=== PATIENT | female | born 1980 | race Two or more races ===

== ENCOUNTER 2021-08-17 10:28 | Emergency (ER) | payer SELFPAY ==
[~2021-08-17] VITALS: Ht 162.6 cm; Wt 67.7 kg
--- NOTE | 2021-08-17 11:30 | PHYS DOC ---
Past Medical History Past Medical History: No Pertinent History Past Surgical History: No Surgical History Smoking Status: Never Smoker Alcohol Use: None General Adult EDM: Chief Complaint: VAGINAL BLEEDING HPI: HPI: Is a 41-year-old female that presents today with vaginal bleeding. Patient states her last normal menstrual period was July 042021, she said that over the last 2 days that she has had some bleeding when she wipes after urina tion. She also Review of Systems: Review of Systems: Constitutional: Denies fever or chills. [] Eyes: Denies change in visual acuity. [] HENT: Denies nasal congestion or sore throat. [] Respiratory: Denies cough or shortness of breath. [] Cardiovascular: Denies chest pain or edema. [] GI: Denies abdominal pain, nausea, vomiting, bloody stools or diarrhea. [] : Denies dysuria. [] Musculoskeletal: Denies back pain or joint pain. [] Integument: Denies rash. [] Neurologic: Denies headache, focal weakness or sensory changes. [] Endocrine: Denies polyuria or polydipsia. [] Lymphatic: Denies swollen glands. [] Psychiatric: Denies depression or anxiety. [] Heart Score: C/O Chest Pain: No Risk Factors: Risk Factors: DM, Current or recent (<one month) smoker, HTN, HLP, family history of CAD, obesity. Risk Scores: Score 0 - 3: 2.5% MACE over next 6 weeks - Discharge Home Score 4 - 6: 20.3% MACE over next 6 weeks - Admit for Clinical Observation Score 7 - 10: 72.7% MACE over next 6 weeks - Early Invasive Strategies Allergies: Allergies: Allergies Coded Allergies Type Severity Reaction Last Updated Verified No Known Drug Allergies 08/17/21 No Physical Exam: PE: Constitutional: Well developed, well nourished, no acute distress, non-toxic appearance. [] HENT: Normocephalic, atraumatic, bilateral external ears normal, oropharynx moist, no oral exudates, nose normal. [] Eyes: PERRLA, EOMI, conjunctiva normal, no discharge. [] Neck: Normal range of motion, no tenderness, supple, no stridor. [] Cardiovascular:Heart rate regular rhythm, no murmur [] Lungs & Thorax: Bilateral breath sounds clear to auscultation [] Abdomen: Bowel sounds normal, soft, no tenderness, no masses, no pulsatile masses. [] Skin: Warm, dry, no erythema, no rash. [] Back: No tenderness, no CVA tenderness. [] Extremities: No tenderness, no cyanosis, no clubbing, ROM intact, no edema. [] Neurologic: Alert and oriented X 3, normal motor function, normal sensory function, no focal deficits noted. [] Psychologic: Affect normal, judgement normal, mood normal. [] Current Patient Data: Labs: Laboratory Tests Test 08/17/21 10:49 08/17/21 10:52 08/17/21 11:40 Urine Collection Type Unknown Urine Color (Auto) Colorless Urine Turbidity Clear Urine pH (Auto) 7.0 Urine Specific [place] 1.002 Urine Protein (Auto) Negative mg/dL Urine Glucose (Auto)(UA) Negative mg/dL Urine Ketones (Auto) Negative mg/dL Urine Blood (Auto) Moderate Urine Nitrite Negative Urine Bilirubin (Auto) Negative Urine Urobilinogen (Auto) Normal mg/dL Urine Leukocyte Esterase (Auto) Negative Urine RBC 0 /HPF Urine WBC 0 /HPF Urine Squamous Epithelial Cells Mod /LPF Urine Bacteria 0 /HPF Bedside Urine HCG, Qualitative Hcg positive White Blood Count 5.2 x10^3/uL Red Blood Count 4.03 x10^6/uL Hemoglobin 11.9 g/dL Hematocrit 36.8 % Mean Corpuscular Volume 91 fL Mean Corpuscular Hemoglobin 30 pg Mean Corpuscular Hemoglobin Concent 32 g/dL Red Cell Distribution Width 13.6 % Platelet Count 380 x10^3/uL Neutrophils (%) (Auto) 71 % Lymphocytes (%) (Auto) 21 % Monocytes (%) (Auto) 8 % Eosinophils (%) (Auto) 1 % Basophils (%) (Auto) 0 % Neutrophils # (Auto) 3.7 x10^3/uL Lymphocytes # (Auto) 1.1 x10^3/uL Monocytes # (Auto) 0.4 x10^3/uL Eosinophils # (Auto) 0.0 x10^3/uL Basophils # (Auto) 0.0 x10^3/uL Maternal Serum HCG Beta Subunit 1495 mIU/mL Laboratory Tests Test 08/17/21 10:52 POC Urine HCG, Qualitative Hcg positive (Negative) Vital Signs: Vital Signs Date Time Temp Pulse Resp B/P (MAP) Pulse Ox O2 Delivery O2 Flow Rate FiO2 08/17/21 12:58 68 14 103/63 (76) 98 Room Air 08/17/21 12:28 64 16 98/58 (71) 98 Room Air 08/17/21 11:28 69 16 103/57 (72) 99 Room Air 08/17/21 10:50 86 16 118/63 (81) 100 Room Air Vital Signs Date Time Temp Pulse Resp B/P (MAP) Pulse Ox O2 Delivery O2 Flow Rate FiO2 08/17/21 10:50 86 16 118/63 (81) 100 Room Air EKG: EKG: [] Radiology/Procedures: Radiology/Procedures: [REASON: vaginal bleeding PROCEDURE: OB TRANSVAG EXAMINATION: US OB TRANSVAGINAL (FIRST TRIMESTER PELVIC ULTRASOUND) CLINICAL HISTORY: Vaginal bleeding, LMP 07/02/2021. TECHNIQUE: Sonography of the pelvis was performed by transvaginal techniques. COMPARISON: None. FINDINGS: Uterus: - Size: 8.6 x 5.5 x 4.5 cm - Myometrium: Homogeneous echotexture - Cervix: Unremarkable Gestation: - Intrauterine Gestational Sac: Single present with normal morphology - Mean Sac Diameter: 4.6 mm, corresponding gestational age 5 weeks 2 days - Yolk Sac: Not visualized - Embryo: Not visualized - Perigestational Hemorrhage: Absent Right Ovary: - Size: 3.3 x 1.8 x 1.9 cm - 1.2 cm hypoechoic lesion which appears to have thickened ill-defined philippe, possibly a corpus luteum. Normal ovarian blood flow. Left Ovary: - Size: 2.7 x 2.0 x 2.0 cm - Normal sonographic appearance and blood flow. Pelvic Free Fluid: Mild anechoic free fluid. IMPRESSION: Intrauterine saclike structure without visualized pole or yolk sac, possibly too early in to be detected. Recommend follow-up ultrasound in 10-14 days for reevaluation. Electronically signed by: Valentin Horner DO (08/17/2021 1:06 PM) [id number] DICTATED and SIGNED BY: VALENTIN HORNER DO DATE: 08/17/21 1250 ] Course & Med Decision Making: Course & Med Decision Making Pertinent Labs and Imaging studies reviewed. (See chart for details) [] Dragon Disclaimer: Dragon Disclaimer: This electronic medical record was generated, in whole or in part, using a voice recognition dictation system. Departure Departure Impression: Primary Impression: Vaginal bleeding in patient at less than 20 weeks gestation Disposition: 01 HOME / SELF CARE / HOMELESS Condition: STABLE Referrals: RIC MICHELLE MD Patient Instructions: ABCs of , Vaginal Bleeding During , First Trimester Additional Instructions: Return to the emergency department if you experience vaginal bleeding rebleed through 2 pads an hour for 3 straight hours, increased abdominal pain, or passage of clots Follow-up with Dr. Michelle in the next 10 to 14 days for repeat exam Take an [id number] vitamin daily [employer] Aug 17, 2021 11:30
[2021-08-17 12:00] LABS: BASO % 0 % (0-3); EOS % 1 % (0-3); HEMATOCRIT 36.8 % (36.0-47.0); HEMOGLOBIN 11.9 g/dL (12.0-15.5); LYMPH # 1.1 x10^3/uL (1.0-4.8); LYMPH % 21 % (24-48); MEAN CORPUSCULAR HEMOGLOBIN 30 pg (25-35); MEAN CORPUSCULAR HGB CONC 32 g/dL (31-37); MEAN CORPUSCULAR VOLUME 91 fL (79-100); MONO # 0.4 x10^3/uL (0.0-1.1); MONO % 8 % (0-9); NEUT # 3.7 x10^3/uL (1.8-7.7); NEUT % 71 % (31-73); PLATELET COUNT 380 x10^3/uL (140-400); RED BLOOD COUNT 4.03 x10^6/uL (3.50-5.40); RED CELL DISTRIBUTION WIDTH 13.6 % (11.5-14.5); WHITE BLOOD COUNT 5.2 x10^3/uL (4.0-11.0)
[2021-08-17 12:51] LABS: BACTERIA,URINE 0 /HPF (0-FEW); RBC,URINE 0 /HPF (0-2); WBC,URINE 0 /HPF (0-4)
[2021-08-17 12:58] VITALS: BP 103/63
--- NOTE | 2021-08-17 13:08 | RAD ---
EXAMINATION: US OB TRANSVAGINAL (FIRST TRIMESTER PELVIC ULTRASOUND) CLINICAL HISTORY: Vaginal bleeding, LMP 07/02/2021. TECHNIQUE: Sonography of the pelvis was performed by transvaginal techniques. COMPARISON: None. FINDINGS: Uterus: - Size: 8.6 x 5.5 x 4.5 cm - Myometrium: Homogeneous echotexture - Cervix: Unremarkable Gestation: - Intrauterine Gestational Sac: Single present with normal morphology - Mean Sac Diameter: 4.6 mm, co rresponding gestational age 5 weeks 2 days - Yolk Sac: Not visualized - Embryo: Not visualized - Perigestational Hemorrhage: Absent Right Ovary: - Size: 3.3 x 1.8 x 1.9 cm - 1.2 cm hypoechoic lesion which appears to have thickened ill-defined philippe, possibly a corpus luteu m. Normal ovarian blood flow. Left Ovary: - Size: 2.7 x 2.0 x 2.0 cm - Normal sonographic appearance and blood flow. Pelvic Free Fluid: Mild anechoic free fluid. IMPRESSION: Intrauterine saclike structure without visualized pole or yolk sac, possibly too early in pregn ana to be detected. Recommend follow-up ultrasound in 10-14 days for reevaluation. Electronically signed by: Valentin Emmanuel DO (08/17/2021 1:06 PM) [id number]
== END 2021-08-17 14:15 | disposition home or self-care (01) ==
LOC: ER 10:28
DX: O46.91 Antepartum hemorrhage, unspecified, first trimester (principal); Z3A.01 Less than 8 weeks gestation of pregnancy
CPT/HCPCS: 36415; 76817; 81001; 81025; 84702; 85025; 86850; 86900; 86901; 99284-25